=== PATIENT | male | born 1995 | race Caucasian/White ===

== ENCOUNTER 2023-12-06 17:55 | Emergency (ER) | payer BC, MEDICAID ==
[~2023-12-06] VITALS: Ht 177.8 cm; Wt 100.4 kg
[2023-12-06 18:51] LABS: INFLUENZA B NAA NEGATIVE (NEGATIVE); RESPIRATORY SYNCYTIAL VIR NAA NEGATIVE (NEGATIVE)
[2023-12-06] MEDS ORDERED: LACTATED RINGER'S 1,000 ML IV ONE (22:00)
[2023-12-06 22:48] VITALS: BP 147/82
== END 2023-12-06 22:49 | disposition home or self-care (01) ==
LOC: ED 17:55
PROVIDERS: Emergency Medicine
DX: J06.9 Acute upper respiratory infection, unspecified (principal); E86.0 Dehydration
CPT/HCPCS: 87502; 99283; J7121; U0002